=== PATIENT | female | born 1955 | race Caucasian/White ===

== ENCOUNTER 2016-06-17 04:46 | Day surgery (SDC) | payer BC ==
--- NOTE | ~2016-06-17 | OP ---
Record Of Operation [facility] [address] [place] [address] NAME: NHI AMBRIZ : 53 STATUS : REG [facility]#: [id number] AGE: 60 ADM/REG DATE : 06/17/16 MR#: [id number] REPORT SERV DATE: 06/17/16 DICTATED BY: JEREMIAH RED DATE: 06/17/16 REPORT STATUS : Draft TRANSCRIBED BY: MODL DATE: 06/17/16 DATE OF PROCEDURE: 06/17/2016 PREOPERATIVE DIAGNOSIS: Calculus, left kidney. POSTOPERATIVE DIAGNOSIS: Calculus, left kidney. PROCEDURE: Left extracorporeal shock wave lithotripsy. ANESTHESIA: MAC. SURGEON: Jeremiah Red M.D. SPECIMENS: None. DRAINS: None. ESTIMATED BLOOD LOSS: None. COMPLICATIONS: None. IMMEDIATE POSTOP: Satisfactory. DESCRIPTION OF PROCEDURE: The patient was brought to the lithotripsy suite, placed on the table of the [employer] lithotripter in the supine position. Left renal calculus in the lower pole of the kidney with about 6 mm in size was easily identified and aligned on mobile C-arm fluoroscopy for lithotripsy. The patient was then coupled to the machine and then given monitored anesthesia care. (MAC) by the Anesthesia Department. The stone was treated with 3000 shocks at 7.0 power level max. The stone did appear to disintegrate during the procedure. Post procedure, the patient was awakened, and removed from the mobile lithotripter, and returned to phase 2 recovery in satisfactory condition. /GEORGE Jeremiah Red M.D. / [id number] CC: Oriana Francois M.D.
[~2016-06-17 04:46] MED LIST: ACET500CAP PO; ADVIL PO; COZAAR100 MG PO; DILT-XR180 MG PO; GLUCOPHAGE1000 MG PO; LEVAQUIN750 MG PO; LEVEMIR SC; NORCO1 TA1 PO; NOVOLOG SC; PRILOSEC40 MG PO; ULTRAM50 PO; VICTOZA18 MG/3 ML SC; VOLT75 PO
[2016-06-17 10:36] LABS: ASCORBIC ACID (UR NOT ORDER) NEG (NEG); BILIRUBIN, URINE NEGATIVE (NEG); KETONE, URINE NEGATIVE (NEG); LEUKOCYTE ESTERASE(NOT OR LARGE (NEG); WBC (NOT ORDERED) (RFLEX) 72 (0-5)
[2016-12-08] MEDS ORDERED: COZAAR100 MG PO (15:03)
[2016-12-08] MEDS ORDERED: VOLT75 PO (15:05)
== END 2016-06-17 14:29 | disposition home or self-care (01) ==
LOC: SDC 04:46
PROVIDERS: Urology
PROC: 0TF4XZZ Fragmentation in Left Kidney Pelvis, External Approach (ICD-10-PCS; principal; 2016-06-17 07:00)
DX: N20.0 Calculus of kidney (principal); I10 Essential (primary) hypertension; E11.9 Type 2 diabetes mellitus without complications
CPT/HCPCS: 50590; 74000; 81001; 82962; 87086; A9270-GY